=== PATIENT | female | born 1960 | race Caucasian/White ===

== ENCOUNTER 2019-11-06 12:13 | Emergency (ER) | payer SELFPAY ==
--- NOTE | 2019-11-06 12:15 | EDM.PDOC ---
ED HPI GENERAL MEDICAL PROBLEM - General Chief Complaint: Neuro Symptoms/Deficits Stated Complaint: STROKE CODE Time Seen by Provider: 11/06/19 12:13 Source of Information: Reports: EMS, EMS Notes Reviewed (Not available at time of dictation), Other (Vick Ritchie). Denies: Old Records (No [facility] records available) History Limitations: Reports: Altered Mental Status - History of Present Illness INITIAL COMMENTS - FREE TEXT/NARRATIVE: The patient was brought to the emergency room via ambulance with heel sprayer accompaniment after previous intercept with basic/EMT service. Note that the patient apparently has had a severe headache since waking up earlier this morning with exact time of onset of headache unknown. 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 Her boss suddenly heard her fall at about 11 AM this morning and went to the next room and found her essentially unresponsive and mostly aphasic with no known history of head injury, seizure activity, urine /stool incontinence, etc. He is a somewhat poor historian, however. Note that the flower shop laborer/designer did start oxygen at 100% by nonrebreather mask at 15 L/min with this decreased to 4 L/m by nasal cannula by the paramedics at time of their arrival. Oxygen saturations were completely normal throughout transport, etc. with Accu- Chek of 88 mg percent taken by the heel sprayer. Saline lock was placed with no other medications given in route. The patient was not able to give us any history secondary to her current CVA. Additional history obtained from the patient's by telephone after the patient left this facility. The patient apparently had a syncopal episode about 1 week ago and was given a glucose preparation by a standby observer with resolution of her symptoms at that time. The patient does not have any previous history of hypoglycemia, diabetes, etc., although she began carrying glucose solution with her in her purse. Patient was not evaluated by a provider at that time. Some discrepancy in the above history with the patient's now stating that the tried calling him at 10:30 a.m., and he could not understand her. The then subsequently called her boss with subsequent history as above. Onset: Today, Sudden Onset Date: 11/06/19 Duration: Constant Location: Reports: Other (She does not exhibit any pain or discomfort) Worsens with: Reports: None Context: Reports: Other (As above). Denies: Sick Contact, Trauma Treatments PLANT CONTROL OPERATOR: Reports: EKG, IV/IO, Oxygen, See EMS Report - Related Data Allergies Allergy/AdvReac Type Severity Reaction Status Date / Time ciprofloxacin [From Cipro] Allergy Other Verified 11/06/19 13:28 Home Meds: Home Meds . [No Known Home Meds] 11/06/19 [History] Past Medical History - History Comment History Comment: Unable to obtain any previous medical history Social & Family History - Living Situation & Occupation Living situation: Reports: ( is disabled) ED ROS GENERAL - Review of Systems Review Of Systems: Unable To Obtain Reason Not Obtained: Patient unresponsive, CVA ED EXAM, NEURO - Physical Exam Exam: See Below Exam Limited By: Altered Mental Status General Appearance: Lethargic Eye Exam: Bilateral Eye: Normal Fundi, Other (Left-sided upper gaze, no nystagmus, anisocoria with 6 mm right-sided 4 mm left-sided pupil) Ears: Normal External Exam, Normal Canal, Hearing Grossly Normal, Normal TMs Head Exam: Atraumatic, Normocephalic. No: Facial Swelling, Facial Tenderness, Sinus Tenderness Neck: Normal Inspection, Supple, Non-Tender, Full Range of Motion. No: Carotid Bruit, Lymphadenopathy (L), Lymphadenopathy (R), Thyromegaly Respiratory/Chest: No Respiratory Distress, Lungs Clear, Normal Breath Sounds, No Accessory Muscle Use, Chest Non-Tender. No: Pleural Rub, Retractions Cardiovascular: Normal Peripheral Pulses, Regular Rate, Rhythm, No Edema, No Gallop, No JVD, No Murmur, No Rub. No: Gallop/S3, Gallop/S4, Friction Rub GI/Abdominal: Normal Bowel Sounds, Soft, Non-Tender, No Organomegaly, No Distention, No Abnormal Bruit, No Mass. No: Pelvis Stable, Guarding (Female) Exam: Deferred Rectal (Female) Exam: Deferred Neurological: Other (Moderate to severe right-sided hemiparesis including the facial region with initial to moderate left-sided weakness, however resolved during the course of emergency room care. Dysarthria with patient not following commands initially and unable to complete a full neurological exam. Only answers yes to any questions.). No: Babinski EKG INTERPRETATION EKG Date: 11/06/19 Time: 12:20 Rhythm: NSR Waggoner: Normal (Left) P-Wave: Enlarged (Diffuse biphasic P waves) QRS: Normal (0.09 seconds) ST-T: Normal (T-wave inversion in lead V1 with resolution of previous T-wave inversion in leads aVL and V2 at time of EKG taken by heel sprayer earlier this morning) QT: Normal HI/PQ Interval: 0.14 seconds representing a short HI interval with no delta waves noted. Extreme poor R-wave progression in the anterior leads Comparison: Change From Previous EKG (As above) EKG Interpretation Comments: 1. No acute ischemic changes 2. Short HI interval 3. Left atrial enlargement Course - Vital Signs Last Recorded V/S: See stroke code sheet - Orders/Labs/Meds Orders: Active Orders 24 hr Category Date Time Status Blood Glucose Check, Bedside [RC] STAT Care 11/06/19 12:16 Active Cardiac Monitoring [RC] STAT Care 11/06/19 12:16 Active EKG Documentation Completion [RC] ASDIRECTED Care 11/06/19 12:16 Active NIH Stroke Scale [RC] ASDIRECTED Care 11/06/19 12:16 Active Oxygen Therapy, ED [RC] CONTINUOUS Care 11/06/19 12:16 Active Peripheral IV Care [RC] . DIRECTED Care 11/06/19 12:16 Active Pulse Oximetry [RC] CONTINUOUS Care 11/06/19 12:16 Active Up With Assistance [RC] ASDIRECTED Care 11/06/19 12:16 Active Vital Signs [RC] PFP Care 11/06/19 12:16 Active Nothing per Oral Now Diet [DIET] Diet 11/06/19 Breakfast Active Chest 1V Frontal [CR] Stat Exams 11/06/19 12:16 Ordered Head wo Cont [CT] Stat Exams 11/06/19 12:16 Taken PROLACTIN [REF] Stat Lab 11/06/19 12:22 Received UA W/MICROSCOPIC [URIN] Stat Lab 11/06/19 12:16 Ordered Sodium Chloride 0.9% [Saline Flush] Med 11/06/19 12:16 Active 10 ml FLUSH ASDIRECTED PRN Obtain Past Medical Record [OM.PC] Stat Oth 11/06/19 12:16 Active Peripheral IV Insertion Adult [OM.PC] Stat Oth 11/06/19 12:16 Ordered Resuscitation Status Stat Resus Stat 11/06/19 12:16 Ordered Medication Orders Sodium Chloride (Saline Flush) 10 ml FLUSH ASDIRECTED PRN PRN Reason: Keep Vein Open Labs: Laboratory Tests 11/06/19 11/06/19 11/06/19 Range/Units 12:22 12:22 12:22 WBC 10.6 H (4.0-10.2) K/uL RBC 4.27 (3.77-5.09) M/uL Hgb 12.4 (11.7-15.5) g/dL Hct 37.6 (34.0-46.0) % MCV 88.1 (84.0-98.0) fL MCH 29.0 (28.2-33.3) pg MCHC 33.0 (31.7-36.0) g/dL RDW 13.5 (11.2-14.1) % Plt Count 411 H (150-350) K/uL Neut % (Auto) 85.8 H (45.0-80.0) % Lymph % (Auto) 9.2 L (10.0-50.0) % [place] % (Auto) 4.5 (2.0-14.0) % Eos % (Auto) 0.1 (0.0-5.0) % Baso % (Auto) 0.4 (0.0-2.0) % Neut # (Auto) 9.10 H (1.40-7.00) K/uL Lymph # (Auto) 0.97 (0.50-3.50) K/uL [place] # (Auto) 0.48 (0.00-1.00) K/uL Eos # (Auto) 0.01 (0.00-0.50) K/uL Baso # (Auto) 0.04 (0.00-0.20) K/uL PT 9.6 (9.5-12.0) SEC INR 1.0 APTT 26.3 (24.5-32.8) SEC D-Dimer, Quantitative 496 H (0-400) ng/mL Sodium (136-145) mmol/L Potassium (3.5-5.1) mmol/L Chloride (98-107) mmol/L Carbon Dioxide (21.0-32.0) mmol/L BUN (7-18) mg/dL Creatinine (0.51-1.17) mg/dL Est Cr Clr Drug Dosing Estimated GFR (MDRD) mL/min Glucose (74-106) mg/dL Lactic Acid (0.4-2.0) mmol/L Uric Acid (2.6-7.2) mg/dL Calcium (8.5-10.1) mg/dL Magnesium (1.8-2.4) mg/dL Total Bilirubin (0.2-1.0) mg/dL AST (15-37) U/L ALT (12-78) U/L Alkaline Phosphatase (46-116) IU/L Creatine Kinase (26-308) U/L Creatine Kinase Index (0.0-2.5) % CK-MB (CK-2) (0.00-3.60) ng/mL Troponin I (0.000-0.056) ng/mL NT-Pro-B Natriuret Pep (0-125) pg/mL Total Protein (6.4-8.2) g/dL Albumin (3.4-5.0) g/dL TSH, Ultra Sensitive (0.358-3.740) mIU/mL 11/06/19 11/06/19 Range/Units 12:22 12:22 WBC (4.0-10.2) K/uL RBC (3.77-5.09) M/uL Hgb (11.7-15.5) g/dL Hct (34.0-46.0) % MCV (84.0-98.0) fL MCH (28.2-33.3) pg MCHC (31.7-36.0) g/dL RDW (11.2-14.1) % Plt Count (150-350) K/uL Neut % (Auto) (45.0-80.0) % Lymph % (Auto) (10.0-50.0) % [place] % (Auto) (2.0-14.0) % Eos % (Auto) (0.0-5.0) % Baso % (Auto) (0.0-2.0) % Neut # (Auto) (1.40-7.00) K/uL Lymph # (Auto) (0.50-3.50) K/uL [place] # (Auto) (0.00-1.00) K/uL Eos # (Auto) (0.00-0.50) K/uL Baso # (Auto) (0.00-0.20) K/uL PT (9.5-12.0) SEC INR APTT (24.5-32.8) SEC D-Dimer, Quantitative (0-400) ng/mL Sodium 144 (136-145) mmol/L Potassium 3.8 (3.5-5.1) mmol/L Chloride 106 (98-107) mmol/L Carbon Dioxide 28.3 (21.0-32.0) mmol/L BUN 19 H (7-18) mg/dL Creatinine 0.88 (0.51-1.17) mg/dL Est Cr Clr Drug Dosing TNP Estimated GFR (MDRD) > 60 mL/min Glucose 106 (74-106) mg/dL Lactic Acid 1.1 (0.4-2.0) mmol/L Uric Acid 4.7 (2.6-7.2) mg/dL Calcium 9.1 (8.5-10.1) mg/dL Magnesium 2.1 (1.8-2.4) mg/dL Total Bilirubin 0.3 (0.2-1.0) mg/dL AST 13 L (15-37) U/L ALT 20 (12-78) U/L Alkaline Phosphatase 90 (46-116) IU/L Creatine Kinase 36 (26-308) U/L Creatine Kinase Index 2.2 (0.0-2.5) % CK-MB (CK-2) 0.80 (0.00-3.60) ng/mL Troponin I 0.000 (0.000-0.056) ng/mL NT-Pro-B Natriuret Pep 660 H (0-125) pg/mL Total Protein 7.4 (6.4-8.2) g/dL Albumin 3.5 (3.4-5.0) g/dL TSH, Ultra Sensitive 0.360 (0.358-3.740) mIU/mL Stat Accu-Chek in our facility of 97 mg percent at time of patient's arrival to this facility.. Meds: Medications Generic Name Dose Route Start Last Admin Trade Name Freq PRN Reason Stop Dose Admin Sodium Chloride 10 ml 11/06/19 12:16 Saline Flush FLUSH ASDIRECTED PRN Keep Vein Open Discontinued Medications Generic Name Dose Route Start Last Admin Trade Name Trupti PRN Reason Stop Dose Admin Aspirin 300 mg 11/06/19 12:43 11/06/19 12:45 Aspirin RECTAL 11/06/19 12:44 300 mg ONETIME ONE Administration Famotidine 40 mg 11/06/19 12:16 11/06/19 12:45 Pepcid IVPUSH 11/06/19 12:17 40 mg ONETIME ONE Administration - Radiology Interpretation Free Text/Narrative:: Chest x-ray, portable, shows no cardiomegaly, CHF, pulmonary infiltrates, pneumothorax, etc. Stocking Inspector shows normal sinus rhythm with heart rate in the 60s to 70s with no ectopy or arrhythmia. Departure - Departure Time of Disposition: 13:05 Disposition: DC/Tfer to Acute Hospital 02 Condition: Serious Clinical Impression: CVA (cerebral vascular accident), Hypertension - Discharge Information *PRESCRIPTION DRUG MONITORING PROGRAM REVIEWED*: Not Applicable *COPY OF PRESCRIPTION DRUG MONITORING REPORT IN PATIENT CUCO: Not Applicable Referrals: PCP,None [Primary Care Provider] - Forms: ED Department Discharge, Interfacility Transfer ANJELICA Sepsis Event Note - Focused Exam Date Exam was Performed: 11/06/19 Time Exam was Performed: 13:33 - Problem List & Annotations (1) CVA (cerebral vascular accident) SNOMED Code(s): 694346961 Code(s): I63.9 - CEREBRAL INFARCTION, UNSPECIFIED Status: Acute Priority : High Current Visit: Yes Onset Date: 11/06/19 Annotation/Comment:: Stroke code called by the heel sprayer on the scene with all providers present in the emergency room at time of arrival the patient to this facility. Telephone consultation at 12:[address] Ferreira, stroke neurologist at [facility] in [place], who did review the CT scan of the head without contrast. Large greater than one third ischemic CVA in the left hemisphere, however no apparent mass shift, etc.. He does not feel that she is a candidate for thrombolysis, he does agree to my recommended rectal aspirin. Immediate air transport to [facility] emergency room in [place] with the neurologist to contact that department concerning patient's arrival and continued stroke code. Patient's neurological status did improve somewhat prior to transfer with more activity and movement on the left side however persistent moderate to severe right-sided hemiparesis, dysarthria, and slowly improving lethargy. Airways intact with no hypoxia and no indication for intubation at this time. Hot transport by paramedics to the airport for air ambulance transfer as above. Note mild leukocytosis likely secondary to stress reaction with additional mild d-dimer elevation likely to patient's CVA. BNP is mildly elevated but no significant CHF by clinical exam or today's chest x-ray. Qualifiers: CVA mechanism: occlusion Precerebral and cerebral artery: middle cerebral artery Laterality of affected vessel: left Qualified Code(s): I63.512 - Cerebral infarction due to unspecified occlusion or stenosis of left middle cerebral artery (2) Hypertension SNOMED Code(s): 92122191 Code(s): I10 - ESSENTIAL (PRIMARY) HYPERTENSION Status: Acute Priority: High Current Visit: Yes Annotation/Comment:: Elevated blood pressures in the emergency room, however no treatment per recommendations from the neurologist. Qualifiers: Hypertension type: essential hypertension Qualified Code(s): I10 - Essential (primary) hypertension - Problem List Review Problem List Initiated/Reviewed/Updated: Yes - My Orders Last 24 Hours: My Active Orders 11/06/19 12:16 Blood Glucose Check, Bedside [RC] STAT Cardiac Monitoring [RC] STAT EKG Documentation Completion [RC] ASDIRECTED NIH Stroke Scale [RC] ASDIRECTED Oxygen Therapy, ED [RC] CONTINUOUS Peripheral IV Care [RC] . DIRECTED Pulse Oximetry [RC] CONTINUOUS Up With Assistance [RC] ASDIRECTED Vital Signs [RC] PFP Chest 1V Frontal [CR] Stat Head wo Cont [CT] Stat UA W/MICROSCOPIC [URIN] Stat Sodium Chloride 0.9% [Saline Flush] 10 ml FLUSH ASDIRECTED PRN Obtain Past Medical Record [OM.PC] Stat Peripheral IV Insertion Adult [OM.PC] Stat Resuscitation Status Stat 11/06/19 12:22 PROLACTIN [REF] Stat 11/06/19 Breakfast Nothing per Oral Now Diet [DIET] - Assessment/Plan Last 24 Hours: My Active Orders 11/06/19 12:16 Blood Glucose Check, Bedside [RC] STAT Cardiac Monitoring [RC] STAT EKG Documentation Completion [RC] ASDIRECTED NIH Stroke Scale [RC] ASDIRECTED Oxygen Therapy, ED [RC] CONTINUOUS Peripheral IV Care [RC] . DIRECTED Pulse Oximetry [RC] CONTINUOUS Up With Assistance [RC] ASDIRECTED Vital Signs [RC] PFP Chest 1V Frontal [CR] Stat Head wo Cont [CT] Stat UA W/MICROSCOPIC [URIN] Stat Sodium Chloride 0.9% [Saline Flush] 10 ml FLUSH ASDIRECTED PRN Obtain Past Medical Record [OM.PC] Stat Peripheral IV Insertion Adult [OM.PC] Stat Resuscitation Status Stat 11/06/19 12:22 PROLACTIN [REF] Stat 11/06/19 Breakfast Nothing per Oral Now Diet [DIET] Assessment:: As above. Plan: As above. Air Ambulance transfer as above
[2019-11-06] MEDS ORDERED: Sodium Chloride 0.9% 10 ML Syringe FLUSH PRN (12:16)
[2019-11-06] MEDS: Aspirin 300 MG Supp RECTAL ONE (12:45)
[2019-11-06] MEDS: Famotidine 20 MG/2 ML SDV IVPUSH ONE (12:45)
[2019-11-06 12:52] LABS: CHLORIDE,CL 106 mmol/L (98-107); PTT,PARTIAL THROMBOPLSTIN TIME 26.3 SEC (24.5-32.8); SODIUM,NA 144 mmol/L (136-145)
== END 2019-11-06 13:05 ==
LOC: EDBD → LL.ED 12:13
DX: I63.512 Cerebral infarction due to unspecified occlusion or stenosis of left middle cerebral artery (principal); I10 Essential (primary) hypertension; Z88.1 Allergy status to other antibiotic agents
CPT/HCPCS: 36415; 70450; 71045; 80053; 82550; 82553; 83605; 83735; 83880; 84146; 84443; 84484; 84550; 85025; 85379; 85610; 85730; 93005; 96374; 99285; A9270; J3490; 93010; 99284